=== PATIENT | male | born 1985 | race Two or more races ===

== ENCOUNTER 2023-11-11 12:25 | Day surgery (SDC) | payer OTHER ==
[~2023-11-11] VITALS: Ht 182.9 cm; Wt 90.7 kg
[2023-11-11] MEDS ORDERED: MIDAZOLAM 2 MG/2 ML VIAL ONE (13:46)
[2023-11-11] MEDS ORDERED: fentaNYL citrate 0.05 MG/ML VIAL ONE (13:46)
[2023-11-11] MEDS: MIDAZOLAM 2 MG/2 ML VIAL IVP ONE (13:55)
[2023-11-11] MEDS: fentaNYL citrate 0.05 MG/ML VIAL IVP ONE (13:56)
[2023-11-11] MEDS: LIDOCAINE 2% 100 MG/5 ML UJET TP ONE (14:11)
== END 2023-11-11 15:25 | disposition home or self-care (01) ==
LOC: MDS 12:25 → MMU 12:26 → MDS 15:25
PROVIDERS: ATTEND Internal Medicine Gastroenterology
DX: K59.00 Constipation, unspecified (principal); K62.5 Hemorrhage of anus and rectum; K64.8 Other hemorrhoids; K22.70 Barrett's esophagus without dysplasia; E78.00 Pure hypercholesterolemia, unspecified; E11.9 Type 2 diabetes mellitus without complications; E03.9 Hypothyroidism, unspecified; Z79.899 Other long term (current) drug therapy; Z98.890 Other specified postprocedural states
CPT/HCPCS: 43235; 45378; 82948; J2250; J3010